=== PATIENT | male | born 1990 | race Caucasian/White ===

== ENCOUNTER 2021-12-13 08:13 | Emergency (ER) | payer MEDICAID, SELFPAY ==
[2021-12-13 08:10] VITALS: BP 122/79; PULSE 61; RESP 16; TEMP 36.9; O2SAT 98
--- NOTE | 2021-12-13 08:30 | ED.GENADUL_ITS ---
Discharge Plan Disposition Patient Disposition: [facility]AT Condition: Stable Discharge Details Clinical Impression: Major depression, Suicidal ideation Primary Care Provider: None,None ED Provider: Caitlyn Grimaldo Discharge Data Discharge Date/Time-TO BE ENTERED AT DEPARTURE: 12/14/21 10:35 Medical Decision Making 12/13/21 YANY Costello Patient is a pleasant 31 year old male, brought in via EMS, with c/c of psychiatric illness and cough. He reports that he has had cough x 2 months after having COVID. Reports that he can have coughing fits that are painful in the abdomen and cause emesis. States that he has known hx of COPD, smokes 1ppd. Denies fevers/chills. No other URI sxs. Denies abdominal pain currently. No recent travel. He reports hx of bipolar type II, PTSD and being a known sociopath. He is currently endorsing SI and HI. No plan for either but reports that he acts, impulsively and will randomly attack people or harm himself. States that he had altercation with local PD last night, stayed in protective custody overnight as he had ETOH on board. Reports that he drinks at least 6 drinks per day. Denies hx of DTs, seizures. Reports he may get shaky, feels a little anxious now. No local support. Typically resides in the [place] area, receives MH from [facility]. Has been hospitalized numerous times, reports at least 40+ hospitalizations, last 2 wks ago in [place]. On exam, paitent appears nontoxic. Lungs are clear, normal cardiac auscultation. He appears to have good personal insight and is quite calm and descriptive. However, he would then make offhanded comments about how impulsive he is and that he would consider injuring staff. He reports that he typically takes Zyprexa 10mg BID, has not had in the past 2 weeks. Will give 1 dose of Zyprexa now. The patient reports he has been having a significant cough, will give 1 dose of Tessalon Perles. Will also give nicotine patch to calm cravings. Patient has one-to-one observer, is in safety clothing and calm currently. Will obtain chest x-ray to evaluate for persistent cough. CXR: FINDINGS: LUNGS: Clear. No pleural abnormality seen. HEART: Normal. MEDIASTINUM: Normal. BONES: Unremarkable. IMPRESSION: No acute pulmonary findings. Patient has been calm since being here. Was evaluated by mental health. Mental health provider is concerned for worsening mental health disorder versus patient also requiring housing assistance and has limited social support. She will reach out to [employer] as well as other local supporting agencies as patient is a . Chest recommended that I requested consultation with on- call psychiatry. Spoke with Dr. Ac. Relayed my concern regarding patient's previous mental health, lack of continued care and current social situation. He will discuss with the patient At the end of my shift, care transition to Brian Rubio PA-C. Patient is actively speaking with Dr. Ac at the end of my shift. 12/13/21 YANY Howard I assumed care of this 31-year-old gentleman from my colleague YANY Munoz, please see her initial HPI and examination. At time of shift change, patient is spe aking with Dr. Ac. I was able to speak with Dr. Ac after the evaluation. He recommends initiating clonidine 0.1 mg 3 times daily, and putting the patient back on his scheduled medications fluoxetine 40 mg daily, Zyprexa 10 mg twice daily, and lithium 300 mg in the morning and 600 mg at night. These scheduled medications were written for. He is concerned about the patient given his antisocial tendencies, lack of accountability and likelihood not to follow-up. He believes the patient will likely benefit from additional resources but feels with the patient can safely be voluntary and would follow-up the disposition set forth by the mental health team and our care management team. As long as the patient is taking his medications he does not believe he reflexively needs the evaluate him on a daily basis but will be happy to at our request I was able to speak with Shell from our crisis team, able to confirm the patient has a diagnosis of bipolar type I. Was recently at [facility] and became aggressive and violent, the police had to intervene. The patient is a BI TRI OPERATOR client and she has reached out to them to help with the disposition and evaluate the patient. She is unsure whether this will happen tonight or potentially tomorrow. We received a call at approximately 1800 from [facility] stating that he was not a candidate to go to their facility. During my time caring for the patient, he was calm and cooperative, took his medications without occultly. He was ambulatory without occultly. Tolerated p.o. intake and took his medications without difficulty. He has no acute concerns or complaints at this time. Case signed out to Dr. Reyes at 2300. 12/14/21 Dr. Grimaldo 0800 -- Please see previous provider's notes for initial presentation, exam, plan and course. No reported events overnight. Case endorsed to continue to monitor while awaiting placement. 0915 -- Case d/w Psychiatric Nurse Practitioner Ambreen Torres who accepts pt for transfer to [facility]. She had inquired if patient had a lithium level obtained. Patient endorses that he has not taken lithium for several months until this was restarted in the ED last night. Medical Records Medical records reviewed: Yes I reviewed the patient's medical records. HPI General Date/Time Provider Initiated Documentation: 12/13/21 08:22 . Limitations to Documentation: no limitations . Information obtained by: patient, EMS and RN notes reviewed . History of Present Illness 31 year old M presents to the emergency department with the chief complaint of SI/HI, impulsivity, lack of access to medications, progression of MH issues, described as severe and similar to prior episodes, Patient started experiencing this year(s) and it has been intermittent. improves with No relieving factors improve symptom(s), No exacerbating factors reported . Patient notes cough (persistant cough since COVID 2 mo ago) and nausea/vomiting (reports cough with severe coughing fits); denies confusion, chest pain, diaphoresis, fever/chills, headaches, shortness of breath and syncope. Patient did receive the following treatments prior to arrival, none Related Data Allergies Allergy/AdvReac Type Severity Reaction Status Date / Time No Known Allergies Allergy Unverified 12/13/21 08:15 General Stated Complaint: PsychEval RONNA: 2 Review of Systems Constitutional Constitutional: Reports as per HPI, Denies fever(s), Denies headache(s) and Denies weakness ENT Ears, Nose, Mouth, and Throat: Denies headache(s) Cardiovascular Cardiovascular: Reports as per HPI, Denies chest pain, Denies dyspnea and Denies dyspnea on exertion Respiratory Respiratory: Reports as per HPI, Reports cough, Denies dyspnea and Denies dyspnea on exertion Gastrointestinal Gastrointestinal: Reports as per HPI and Denies abdominal pain Musculoskeletal Musculoskeletal: Denies abnormal gait Neurologic Neurologic: Denies abnormal speech, Denies abnormal gait, Denies headache(s), Denies paresthesias and Denies weakness PFSH All Active Problems (Updated 12/14/21 @ 09:26 by Caitlyn Grimaldo DO) Major depression (Chronic) Suicidal ideation (Acute) Homicidal ideations (Acute) Suicidal ideation (Acute) Medical History (Updated 12/14/21 @ 09:26 by Caitlyn Grimaldo DO) Antisocial personality disorder Bipolar affective disorder PTSD (post-traumatic stress disorder) Social History Smoking/Tobacco Use Status: Current every day Tobacco Type: cigarettes Smoking risk assessment performed?: Yes Alcohol Intake: current Alcohol Intake frequency: 3 or more drinks per day Drug use: Daily Substance use type: marijuana Exam Const General: cooperative, healthy appearing, comfortable, no acute distress, well developed and well groomed Nutritional Appearance: average body habitus and well nourished Orientation: alert and awake Eyes General: appearance normal, both eyes and all related structures Resp Effort & Inspection: normal respiratory effort, able to speak in complete sentences and no respiratory distress Auscultation: clear to auscultation bilaterally, no rales, no rhonchi and no wheezes Cardio Rate: regular rate Rhythm: regular rhythm Heart Sounds: S1 normal and S2 normal Skin General skin exam: no rashes or lesions noted Trauma: no lacerations or abrasions Neuro General: patient alert and patient awake Cognition: normal cognition Speech: speech normal Gait: normal gait Psych Appearance: grossly normal and well kempt Mental Status: mental status grossly normal Speech and Movement: speech and movement normal Mood: congruent mood Affect: normal affect Attitude: guarded Thought Content: no hallucinations and suicidality Insight: fair Judgment: fair Course Vital Signs Vital signs: Vital Signs Temperature 36.9 C 12/13/21 08:10 Pulse 61 12/13/21 08:10 Respiratory Rate 16 12/13/21 08:10 Blood Pressure 122/79 12/13/21 08:10 Pulse Oximetry 98 12/13/21 08:10 Temperature 36.9 C 12/13/21 08:10 Temperature Source Temporal Artery Scan 12/13/21 08:10 Pulse 61 12/13/21 08:10 Respiratory Rate 16 12/13/21 08:10 Respiratory Effort Non-Labored 12/13/21 08:15 Blood Pressure 122/79 12/13/21 08:10 Blood Pressure Position Sitting 12/13/21 08:10 Pulse Oximetry 98 12/13/21 08:10 Oxygen Delivery Method Room Air 12/13/21 08:10 Oxygen Flow Rate 0 12/13/21 08:10 Sign Out Sign Out Data: Sign Out Comment: Care transition to Brian Rubio PA-C, with consultation with mental health and disposition pending. Patient is actually endorsing suicidal and homicidal ideations. No hallucinations. Significant past psychiatric history. Has been evaluated by mental health and is actively speaking with Dr. Ac. Patient has been voluntary while here. Last updated by Velvet Munoz PA at 12/13/21 16:24 Sign Out Comment: Voluntary placement. Dr. Ac evaluated patient, made recommendations, those medications were written for. Awaiting [facility] and BI TRI OPERATOR assessment tomorrow for hopeful disposition Last updated by Pedro Rubio PA at 12/13/21 22:09 Sign Out Comment: Patient stable. No interventions. Pending placement. Last updated by Everton Reyes DO at 12/14/21 07:43 PAWSS Have you Been Recently Intoxicated or Drunk Within the Last 30 days?: Yes Have you Ever Experienced Previous Episodes of Alcohol Withdrawal?: No Have you ever Experienced Withdrawal Seizures?: No Have you ever Experienced Delirium Tremens(DT)s?: No Have you ever undergone Alcohol Rehabilitation Treatment (i.e, inpt ot outpatien t treatment programs)?: Yes Have you ever Experienced Blackouts?: Yes Have you ever Combined Alcohol with other Downers within the last 90 days?: Yes Have you ever Combined Alcohol with any other Substance of Abuse during the last 90 days?: Yes Positive Blood Alcohol level on Presentation? [PCS.BAL]: No Evidence of Increased Autonomic Activity (i.e. HR>120, tremor, sweating, agitation, nausea)?: No Result: 5
--- NOTE | 2021-12-13 08:35 | NUR.NOTE ---
Nursing Note: [facility], Dr. Martinez, .
[2021-12-13 08:52] LABS: Bilirubin Small (Negative); Blood Negative (Negative); Clarity Clear (Clear); Glucose Negative (Negative); Ketones >=160 mg/dL (Negative); Leukocyte Esterase Negative (Negative); Nitrite Negative (Negative); Specific Gravity >= 1.030 (1.005-1.025); Urobilinogen 0.2 EU/dL (Up TO 0.2); pH 6.5 (5-8)
[2021-12-13 09:01] LABS: *AMPHETAMINES SCREEN URINE Negative (Negative); *BARBITURATES SCREEN URINE Negative (Negative); *BENZODIAZEPINES SCREEN URINE Negative (Negative); Cannabinoids THC Positive (Negative); Cocaine Screen,Urine Negative (Negative); METHADONE URINE SCREEN Negative (Negative); OPIATES URINE SCREEN Negative (Negative); Tricyclic Antidepressants Negative (Negative)
[2021-12-13] MEDS: Nicotine 21 MG/24 HR PATCH TD (09:08)
[2021-12-13] MEDS: Benzonatate 100 MG CAP PO (09:08)
[2021-12-13] MEDS: OLANZapine 10 MG TAB PO ×2 (09:08→20:11)
[2021-12-13 09:14] LABS: Abs Immature Grans 0.02 10^3/uL (0.0-0.06); Absolute Basophil Count 0.04 10^3/uL (0.0-0.2); Absolute Eosinophil Count 0.09 10^3/uL (0.0-0.7); Absolute Lymphocyte Count 1.37 10^3/uL (1.2-3.4); Absolute Monocyte Count 0.52 10^3/uL (0.1-0.8); Absolute Neutrophil Count 4.33 10^3/uL (1.2-6.7); Basophils % 0.6; Eosinophils % 1.4; HCT 43.3 % (40.0-50.0); HGB 14.3 g/dL (13.5-17.5); Immature Grans % 0.3; Lymphocytes % 21.5; MCH 31.2 pg (27.0-33.0); MCV 94.5 fL (80-95); MPV 9.6 fL (8.0-11.0); Monocytes % 8.2; Platelet Count 250 10^3/uL (130-400); RBC 4.58 10^6/uL (4.36-5.78); RDW-SD 45.1 fL; WBC 6.37 10^3/uL (4.4-10.8)
[2021-12-13 09:36] LABS: ALT 42 U/L (16-63); AST 38 U/L (15-37); Alkaline Phosphatase 74 U/L (46-116); Anion Gap 6.4 mmol/L (3-11); BUN 9 mg/dL (7-18); Bilirubin, Total 0.9 mg/dL (0.2-1.0); CO2 28.6 mmol/L (21.0-32.0); CREATININE 0.7 mg/dL (0.70-1.30); Calcium 9.1 mg/dL (8.5-10.1); Chloride 102 mmol/L (98-107); Glucose 84 mg/dL (74-106); Potassium 4.4 mmol/L (3.5-5.1); Sodium 137 mmol/L (136-145); Total Protein 7.5 g/dL (6.4-8.2)
[2021-12-13 09:37] LABS: ETHANOL BLOOD < 3.0 mg/dL (<10)
[2021-12-13 09:49] LABS: Salicylate 3.3 mg/dL (<2.8)
[2021-12-13 09:50] LABS: Acetaminophen < 2 ug/mL (10-30)
--- NOTE | 2021-12-13 09:55 | DI.RAD_ITS ---
Exam(s) XR PORTABLE CHEST AP EXAM: XR PORTABLE CHEST AP CLINICAL HISTORY: cough since COVID dx 2 months ago TECHNIQUE: 2D digital imaging was performed. One view. COMPARISON: No exams were available for comparison FINDINGS: LUNGS: Clear. No pleural abnormality seen. HEART: Normal. MEDIASTINUM: Normal. BONES: Unremarkable. IMPRESSION: No acute pulmonary findings. DATA REPOSITORY: RADIATION DOSE DELIVERED:
[2021-12-13 10:27] LABS: Source Nasal/Nares
[2021-12-13 11:07] LABS: COVID-19 PCR Negative (Negative)
--- NOTE | 2021-12-13 12:44 | PDOC.CMSAFED ---
- If Service Date Differs Date of service: 12/13/21 Time of Service: 12:44 Care Management Safety Plan Status: Voluntary - Reason for Wait Reason for Wait: Inpatient Admission CHIEF COMPLAINT: Luca presents in the ED endorsing both suicidal and homicidal ideation. He is originally from the [facility] and receives services through the [facility] at [facility] where his case packer and sealer is Medina and Dr. Larkin is his psychiatrist, though Luca is not currently on any medications. Luca is presently homeless as he was reportedly kicked out of [address] housing approximately 3 weeks ago. He has an extensive psychiatric and substance use history and reports having been hospitalized 15 times at [facility] and 20 times at [facility]. Luca was assessed by Shell of [facility] this morning and referrals have been faxed to [facility], [facility], [facility], and [facility] for review. Luca will remain at [facility] voluntarily and will be reassessed daily by [facility] until a psychiatric placement can be secured for him. VOLUNTARY FOR INPATIENT PSYCHIATRIC STABILIZATION. Patient is appropriate in all interactions since arriving at [facility]; Pt has demonstrated appropriate coping and communication skills, has articulated his or her needs and concerns and is fully engaged during staff interactions. A huddle is held at approximately 12:15 pm with Erika, nursing licensed retail supervisor, MANUELITO Goff, and KATHRIN Contreras, in attendance. Safety plan has been established with patient, and care team, to adhere to patient goals, identify restrictions based on behavioral status, address nutrition, and determine allowed personal belongings, tools for hygiene and personal care. Determine level of activity including ambulation, level of supervision, visitors, and determine privileges based on behaviors and level of engagement by pt. SAFETY PLAN: 1. Will remain on suicide precautions. In Paper Clothes 2. Will remain in room under direct supervision of one-on-one staff at all times provided by [employer], BON, HIDE AND SKIN FLESHING MACHINE OPERATOR economic development coordinator. 3. May have paper cups, plates, finger foods as well as a cardboard spoon with which to eat meals. 4. Follow [facility] Management of the Admitted Behavioral Health Patient policy. 5. Shower permitted with escort at RN discretion. 6. No personal belongings. 7. Visitors: none at this time. 8. Activities: soft cart items, music tablet, television, and other activities at RN discretion. 9. Bathroom privileges with escort in the ED, available in room without limitation on M/S. 10. Phone: may use frenting hospital phone at RN discretion. 11. Due to VOLUNTARY status, if patient wishes to leave [facility], staff will contact [facility] Crisis Screener ([phone]) and On-Call Physiotherapy Aide ([phone]) as soon as possible. In the event of elopement, notify [facility] Police ([phone]). Patient is currently voluntarily at [facility] and seeking inpatient admission when a bed becomes available. [facility] Frontline Electronic Imager will continue seeking placement. Please contact the Videogame Designer Physiotherapy Aide ([phone]) and [facility] Electronic Imager ([phone]) for any needed changes in the Safety Plan. Safety plan has been provided to interdepartmental care team.
--- NOTE | 2021-12-13 16:08 | PSYCO_ITS ---
Date of service: 12/13/21 Time of Service: 16:08 History of Present Illness History of Present Illness Chief Complaint: I'm suicidal and homicidal Narrative: 24 hour consultation requested by Velvet Munoz. Presented voluntarily after b eicathy in police custody after an epiode of public intoxication and belligerent behavior. Presents stating he is suicidal and homicidal. Reports a psychiatric history of Bipolar Disorder, PTSD, and antisocial personaity disorder, and alcohol dependence. Multiple past admission. Reportd 3 past suicida attempts. Reports a history of developmental abuse and trauma and flashbacks of past traumatic events. States angrily if you try to kick me out, I'll blow my fucking brains out. Notably, he does not have access to firearms. He is homeless, unemployed, has not source of financial supports. He gets case management services through [facility] and is a patient of Andrew Larkin. He was recently discharged from [facility] where he was started on olanzapine 10 mg BID, lithium 300 mg QAM, 600 mg QHS, fluoxetine 40 mg QAM, and vitamin supplements. He drinks daily and uses cannabis daily. He has mild to moderate withdrawal symptoms on abstinence though has never had DT's of seizures. He has been assessed by [facility] who has questions about reasonable and appropriate discharge planning. His treatment goals are to get into some correction program. When informed that none exists, he states Well, if you just try to kick me out of here, I'm just gonna fucking blow my brains out. He is advised that [facility] is the best positioned resource to help him secure [facility]cc housing and treatment supports. He replies, They's a bunch of fucking morons. Assessment and Plan Assessment and plan (1) Antisocial personality disorder: Status: Acute Assessment and plan: His presentation at this time appears to be largely antisocial in nature and his motivation for seeking treatment is for secondary gain of longterm and nutritional support. It is likely suicidal statements are motivated primarily to manipulate the sympathies (or fears) of others and thus attempt to secure housing and comfort. [facility] is evaluating placement options: defer disposition recommendations to [facility] crisis team and its planning. Disposition as per team plan. No follow up indicated at this time. (2) Suicidal ideation: Status: Acute Assessment and plan: Restart meds as follows: Olanzapine 10 mg BID lithium 300 mg QAM, 600 mg QHS Fluoxetine 40 mg QAM (3) Homicidal ideations: Status: Acute Assessment and plan: No identified target; no tarasoff obligation to warn and protect. (4) PTSD (post-traumatic stress disorder): Status: Acute Assessment and plan: Start clonidine 0.1 mg TID PFSH All Active Problems (Updated 12/13/21 @ 16:15 by Topher Ac MD) PTSD (post-traumatic stress disorder) (Acute) Homicidal ideations (Acute) Suicidal ideation (Acute) Antisocial personality disorder (Acute) Social History Smoking/Tobacco Use Status: Current every day Tobacco Type: cigarettes Smoking risk assessment performed?: Yes Alcohol Intake: current Alcohol Intake frequency: 3 or more drinks per day Drug use: Daily Substance use type: marijuana Exam Narrative Exam Narrative: Dissheveled. ANgry, hostile demeanor. Speech normal. Mood irritable. Affect labile. Thought process linear. No psychosis noted. Intelligence is average. Insight and judgment are intact. Results Last Vital Signs Temp 36.9 C 12/13/21 08:10 Pulse 61 12/13/21 08:10 Resp 16 12/13/21 08:10 BP 122/79 12/13/21 08:10 Pulse Ox 98 12/13/21 08:10 Labs Result diagrams: 12/13/21 09:10 12/13/21 09:10 Labs: Laboratory Results - last 24 hr 12/13/21 12/13/21 12/13/21 08:28 08:28 09:10 WBC RBC Hgb Hct MCV MCH MCHC RDW Plt Count MPV Immature Gran % Neutrophils % Lymphocytes % Monocytes % Eosinophils % Basophils % Nucleated RBC % Absolute Neutrophils Absolute Lymphocytes Absolute Monocytes Absolute Eosinophils Absolute Basophils Sodium 137 Potassium 4.4 Chloride 102 Carbon Dioxide 28.6 Anion Gap 6.4 BUN 9 Creatinine 0.7 Estimated GFR/1.73 m2 >= 60.00 Glucose 84 Calcium 9.1 Total Bilirubin 0.9 AST 38 H ALT 42 Alkaline Phosphatase 74 Total Protein 7.5 Albumin 4.0 TSH 1.00 Urine Color Yellow Urine Clarity Clear Urine pH 6.5 Ur Specific [place] >= 1.030 H Urine Protein Negative Urine Ketones >=160 H Urine Blood Negative Urine Nitrite Negative Urine Bilirubin Small H Urine Urobilinogen 0.2 Ur Leukocyte Esterase Negative Urine Glucose Negative Salicylates Urine Opiates Screen Negative Urine Methadone Screen Negative Acetaminophen Ur Barbiturates Screen Negative Ur Tricyclics Screen Negative Ur Amphetamines Screen Negative U Benzodiazepines Scrn Negative Urine Cocaine Screen Negative Ur THC Screen Positive A Ethyl Alcohol < 3.0 COVID-19 Source SARS-CoV-2 (PCR) 12/13/21 12/13/21 12/13/21 09:10 09:10 10:24 WBC 6.37 RBC 4.58 Hgb 14.3 Hct 43.3 MCV 94.5 MCH 31.2 MCHC 33.0 RDW 13.0 Plt Count 250 MPV 9.6 Immature Gran % 0.3 Neutrophils % 68.0 Lymphocytes % 21.5 Monocytes % 8.2 Eosinophils % 1.4 Basophils % 0.6 Nucleated RBC % 0.0 Absolute Neutrophils 4.33 Absolute Lymphocytes 1.37 Absolute Monocytes 0.52 Absolute Eosinophils 0.09 Absolute Basophils 0.04 Sodium Potassium Chloride Carbon Dioxide Anion Gap BUN Creatinine Estimated GFR/1.73 m2 Glucose Calcium Total Bilirubin AST ALT Alkaline Phosphatase Total Protein Albumin TSH Urine Color Urine Clarity Urine pH Ur Specific [place] Urine Protein Urine Ketones Urine Blood Urine Nitrite Urine Bilirubin Urine Urobilinogen Ur Leukocyte Esterase Urine Glucose Salicylates 3.3 Urine Opiates Screen Urine Methadone Screen Acetaminophen < 2 Ur Barbiturates Screen Ur Tricyclics Screen Ur Amphetamines Screen U Benzodiazepines Scrn Urine Cocaine Screen Ur THC Screen Ethyl Alcohol COVID-19 Source Nasal/Nares SARS-CoV-2 (PCR) Negative Consent/Time spent Consent/Time Spent The patient has consented to a virtual communication with the provider: Yes Visit performed via: Telehealth Time Spent (minutes): 90
[2021-12-13] MEDS: cloNIDine 0.1 MG TAB PO (20:10)
[2021-12-13] MEDS: Lithium Carbonate 150 MG CAP (20:10)
[2021-12-13] MEDS: Lithium Carbonate 150 MG CAP 600 MG PO (20:11)
--- NOTE | 2021-12-13 22:26 | PDOC.MHCN_ITS ---
Date of service: 12/13/21 Time of Service: 22:26 Mental Health Crisis Note Presenting Issue How did you arrive at the ED and why did you come: Pt arrived on 12.13.2021 after being discharged from corrections. Precipitating Factors He is endorsing SI and HI and reports he is impulsive not a environmental emergencies planner. Disposition BEHAVIOR: moderately cooperative and engaged (i.e. not answering questions fully and if he does some of his answered are inaudible). I'm tired and do not want to talk. EYE CONTACT: poor MOOD: not consistent AFFECT: Unable to assess due to eyes being closed and unwillingness to fully engage. APPETITE: Poor per hi report but good per observation. SLEEP(trouble falling/staying asleep: Poor per Pt report but is struggling to engage during the assessment. Plan Pt agreed to stay voluntarily. He is seeking emt intermediate MH and SA treatment which was explained that [facility] does not do however we can seek short term placement. He agreed to this. Signature Clinician's Name/Title: Shell Schwartz MS, [facility] Emergency Services Clinician, [facility]
--- NOTE | 2021-12-14 08:12 | NUR.NOTE ---
PAatient is being offered food and fluids. HE wants fluids poured in front of him. He is refusing to eat any food from [facility]. PAtient feels he is being poisoned:
[2021-12-14] MEDS: OLANZapine 10 MG TAB PO (09:10)
[2021-12-14] MEDS: cloNIDine 0.1 MG TAB PO (09:10)
[2021-12-14] MEDS: Lithium Carbonate 150 MG CAP 300 MG PO (09:11)
[2021-12-14] MEDS: FLUoxetine 20 MG CAP 40 MG PO (09:11)
[2021-12-14 09:13] VITALS: BP 113/83; PULSE 60; TEMP 36.5; O2SAT 98
--- NOTE | 2021-12-14 09:14 | NUR.NOTE ---
Nursing Note:Patient eating breakfast, vitals done and patient took morning medications. 1:1 continues.
--- NOTE | 2021-12-14 10:35 | NUR.NOTE ---
Nursing Note:Suzette picked patient up to transport patient to [place].
--- NOTE | 2021-12-14 10:38 | CMPROGNOTE_ITS ---
- If Service Date Differs Date of service: 12/14/21 Time of Service: 10:38 Care Management Progress Note S/O: Luca has been calm and cooperative since his arrival at [facility]. CM briefly meets with him this morning to let him know he has been accepted at the [facility]. Luca advises he has been there many times and is glad to be returning to the facility. CM discusses expectations and answers his questions. A: Luca is a 31 year old male admitted to [facility] on 12/13/2021 for suicidal ideation. P: Luca is accepted for a voluntary admission at the [facility]. He will follow up with his treatment team at [facility] and his plan of care as directed upon discharge from the [facility]. [facility] to [place]. - Status Status: Voluntary - Reason for Wait Reason for Wait: Inpatient Admission ([facility])
== END 2021-12-14 10:35 | disposition short-term general hospital (02) ==
PROVIDERS: Physician Assistant; Emergency Provider Physician Assistant
DX: F32.A Depression, unspecified (principal); R45.851 Suicidal ideations; R05.9 Cough, unspecified; Z86.16 Personal history of COVID-19; F17.210 Nicotine dependence, cigarettes, uncomplicated
CPT/HCPCS: 36415; 80053; 80307; 87635; 99285; Q3014; 71045; 80320; 80329; 81003; 84443; 85025